=== PATIENT | female | born 1950 | race Caucasian/White ===

== ENCOUNTER 2022-12-30 11:45 | Outpatient (CLI) | payer MEDICARE, BC ==
[~2022-12-30] VITALS: Ht 152.4 cm; Wt 68.0 kg
[2022-12-30] MEDS ORDERED: TIOT4MIS2 INH (12:23)
[2022-12-30] MEDS ORDERED: AMLO5TAB16 PO (12:23)
[2022-12-30] MEDS ORDERED: PRAM0.5T12 PO (12:23)
[2022-12-30] MEDS ORDERED: BUDE10.2 PO (12:23)
[2022-12-30] MEDS ORDERED: ALBU18HF2 INH (12:23)
[2022-12-30] MEDS ORDERED: ATEN100T PO (12:23)
[2022-12-30] MEDS ORDERED: COLC0.6T72 PO (12:23)
[2022-12-30] MEDS ORDERED: ALLO300T8 PO (12:23)
[2022-12-30 13:09] LABS: CLARITY,URINE CLEAR (Clear); COLOR,URINE YELLOW (Yellow); GLUCOSE, URINE NEGATIVE (Neg); KETONES,URINE NEGATIVE (Neg); LEUKOCYTE ESTERASE ,URINE NEGATIVE (Neg); NITRITES, URINE NEGATIVE (Neg); OCCULT BLOOD,URINE NEGATIVE (Neg); PROTEIN,URINE NEGATIVE (Neg); UROBILINOGEN,URINE 0.2 E.U/dL (0.2-1.0)
[2022-12-30 13:12] LABS: BASOPHILS # (AUTO) 0.1 X10'3 (0-0.2); BASOPHILS % (AUTO) 1.1 % (0-1); EOSINOPHILS # (AUTO) 0.4 X10'3 (0-0.9); EOSINOPHILS % (AUTO) 4.1 % (0-6); LYMPHOCYTES # (AUTO) 2.2 X10'3 (1.1-4.8); LYMPHOCYTES % (AUTO) 24.7 % (21-51); MEAN CORPUSCULAR HEMOGLOBIN 29.6 PG (27.0-31.0); MEAN CORPUSCULAR HGB CONC 33.3 g/dL (33.0-36.5); MEAN CORPUSCULAR VOLUME 88.9 FL (78-98); MEAN PLATELET VOLUME 9.1 FL (7.4-10.4); MONOCYTES # (AUTO) 0.4 X10'3 (0-0.9); MONOCYTES % (AUTO) 4.5 % (2-12); NEUTROPHILS # (AUTO) 5.9 X10'3 (1.8-7.7); NEUTROPHILS % (AUTO) 65.6 % (42-75); PRE OP HEMATOCRIT 43.7 % (35.0-45.0); PRE OP HEMOGLOBIN 14.5 g/dL (12.0-16.0); PRE OP PLATELET COUNT 234 X10'3 (140-440); RED BLOOD COUNT 4.91 X10'6 (4.20-5.60)
[2022-12-30 13:25] LABS: UA COLLECTION TYPE CLN CATCH MIDSTREAM
[2022-12-30 13:27] LABS: ALBUMIN 3.8 G/DL (3.4-5.0); ALBUMIN/GLOBULIN RATIO 1.1 (1.1-1.5); ALKALINE PHOSPHATASE 92 IU/L (46-116); BLOOD UREA NITROGEN 21 MG/DL (7-18); BUN/CREATININE RATIO 24.7 (10.0-20.0); CALCIUM 9.9 MG/DL (8.5-10.1); CHLORIDE 103 MMOL/L (99-107); CREATININE 0.85 MG/DL (0.40-0.90); PRE OP ALT 24 U/L (30-65); PRE OP ANION GAP 9 (8-16); PRE OP AST 19 U/L (10-37); PRE OP BILIRUB, TOTAL 0.5 MG/DL (0.0-1.0); PRE OP GLUCOSE 95 MG/DL (70-104); PRE OP POTASSIUM 3.9 MMOL/L (3.4-5.1); PRE OP SODIUM 139 MMOL/L (135-145); TOTAL CARBON DIOXIDE 27.3 MMOL/L (24-32); TOTAL PROTEIN 7.2 G/DL (6.4-8.2); eGFR 66 ML/MIN
[2023-01-01] MEDS ORDERED: ringers solution, lacted 1,000 ML IV SCH (05:00)
[2023-01-01] MEDS ORDERED: DOCUMENT DATE & TIME OF BETA-BLOCKER PO ONE (05:30)
[2023-01-01] MEDS ORDERED: albuterol 2.5 MG/3 ML nebule NEB ONE (05:30)
[2023-01-01] MEDS ORDERED: famotidine 20mg tablet PO ONE (05:30)
[2023-01-01] MEDS ORDERED: ceFOXitin 2GM-NS 100mL ADDvant 100 ML IV ONE (05:30)
== END 2022-12-30 23:59 | disposition home or self-care (01) ==
LOC: LAB 11:45 → EDSTATUS 01-01 11:30
PROVIDERS: ATTEND Obstetrics & Gynecology Obstetrics
DX: Z01.818 Encounter for other preprocedural examination (principal); J98.11 Atelectasis; R93.89 Abnormal findings on diagnostic imaging of other specified body structures; R19.03 Right lower quadrant abdominal swelling, mass and lump
CPT/HCPCS: 36415; 71046; 80053; 81003; 85025; 86885; 86900; 86901; 93005; J0694; J7120